=== PATIENT | male | born 1950 | race Caucasian/White ===

== ENCOUNTER 2020-07-24 10:46 | Emergency (ER) | payer OTHER ==
[~2020-07-24] VITALS: Ht 170.2 cm; Wt 58.1 kg
--- NOTE | 2020-07-24 11:01 | NUR ---
Patient BIBA, c/o of chest pain with pain scale 7/10, per patient it feels like a pressure, it started 09:00. per patient he was discharge in [facility] yesterday with same complaint. VSS, safety measures initiated, will continue to monitor.
[2020-07-24] MEDS ORDERED: LIDOCAINE VISCOUS 2% UD 15 ML UDC ONE (11:44)
[2020-07-24] MEDS ORDERED: MAG HYDROX/AL HYDROX/SIMETH 30 ML UDC ONE (11:44)
[2020-07-24 11:48] LABS: EOSINOPHILS % (AUTO) 0.9 % (0.0-6.0); LYMPHOCYTES # (AUTO) 1.3 /CMM (0.8-4.8); MEAN CORPUSCULAR VOLUME 89 fL (80-96)
[2020-07-24 11:52] LABS: BASOPHILS % (AUTO) 0.6 % (0.0-2.0); HEMATOCRIT 40 % (39-51); HEMOGLOBIN 13.9 g/dL (13.5-17.5); LYMPHOCYTES % (AUTO) 21.9 % (20.0-44.0); MEAN CORPUSCULAR HGB CONC 34 g/dl (31.0-36.0); MONOCYTES # (AUTO) 0.8 /CMM (0.1-1.30); MONOCYTES % (AUTO) 13.3 % (2.0-12.0); NEUTROPHILS # (AUTO) 3.9 /CMM (1.8-8.9); NEUTROPHILS % (AUTO) 63.3 % (43.0-81.0); PLATELET COUNT (AUTO) 188 /CMM (150-450); RED BLOOD CELL COUNT(AUTO) 4.51 MIL/uL (4.5-6.0); WHITE BLOOD COUNT (AUTO) 6.1 K/uL (4.3-11.0)
[2020-07-24 11:55] LABS: CALCIUM, SERUM 9.2 mg/dL (8.5-10.1); CARBON DIOXIDE 25 mmol/L (21-32); CHLORIDE 103 mmol/L (98-107); GLUCOSE 124 mg/dL (74-106); POTASSIUM 3.3 mmol/L (3.5-5.1); SODIUM SERUM 138 mmol/L (136-145); UREA NITROGEN, BLOOD 12 mg/dL (7-18)
[2020-07-24] MEDS ORDERED: MAG HYDROX/AL HYDROX/SIMETH 30 ML UDC PO ONE (12:00)
[2020-07-24] MEDS ORDERED: LIDOCAINE VISCOUS 2% UD 15 ML UDC MM ONE (12:00)
[2020-07-24 12:08] LABS: NT-PRO BNP 513 pg/mL (0-125)
[2020-07-24 13:40] VITALS: BP 140/82
--- NOTE | 2020-07-24 13:40 | NUR ---
Discharge in stable condition, a/o x4, accompanied by [facility] josé miguel miller teaching/discharge instruction given and verbalized understanding. All belongings with SHELBY miller.
== END 2020-07-24 13:40 ==
LOC: ER 10:51
DX: R07.89 Other chest pain (principal); I10 Essential (primary) hypertension; Z88.0 Allergy status to penicillin; Z88.8 Allergy status to other drugs, medicaments and biological substances
CPT/HCPCS: 36415; 71045-TC; 80048-TC; 83880; 84484-TC; 85025-TC